=== PATIENT | male | born 1940 ===

== ENCOUNTER 2018-07-22 04:20 | Inpatient (IN) ==
[2018-07-22] MEDS ORDERED: ONDANSETRON 4 MG/2 ML VIAL IV STA (04:30)
[2018-07-22] MEDS ORDERED: MORPHINE 4 MG/1 ML VIAL IV STA (04:30)
[2018-07-22] MEDS ORDERED: KETOROLAC 30 MG/1 ML VIAL IV STA (04:30)
[2018-07-22 04:58] LABS: Basophils # 0.1 10*3/uL (0.0-0.2); Basophils % 0.8 % (0.0-0.8); Eosinophils # 0.1 10*3/uL (0.0-0.87); Eosinophils % 0.9 % (0.00-10.9); Hematocrit 49.3 VOL% (42.0-52.0); Hemoglobin 16.8 GM/DL (14.0-18.0); Immature Granulocytes % 0.4 %; Immature Granulocytes Absolute 0.07 #; Lymphocytes # 2.3 10*3/uL (1.4-4.0); Lymphocytes % 14.7 % (21.2-54.2); Mean Corpuscular HGB Conc 34.1 GM/DL (32-36); Mean Platelet Volume 11.2 FL (9.6-12.0); Monocytes % 6.5 % (1.7-12.7); Neutrophils % 76.7 % (38.7-73.9); Platelet Count 281 T/CUMM (130-400); Red Blood Count 5.19 MC/CUMM (3.8-5.5); Red Cell Distribution Width 13.4 % (9.3-17.3); White Blood Count 15.6 T/CUMM (4-12)
[2018-07-22 06:16] LABS: Albumin 4.3 G/DL (3.4-5.0); Calcium 10.6 MG/DL (8.5-10.1); Osmolality,Calculated 284.3 MOS/KG (273-304); Total Protein 8.2 G/DL (6.4-8.3)
[2018-07-22] MEDS: DEXTROSE 5% LACTATED RINGERS 1,000 ML IV SCH ×3 (06:51→23:17)
[2018-07-22] MEDS: MORPHINE 4 MG/1 ML VIAL IV PRN ×3 (07:35→20:31)
[2018-07-22] MEDS: PANTOPRAZOLE 40 MG VIAL IV SCH (08:57)
[2018-07-22] MEDS: ONDANSETRON 4 MG/2 ML VIAL IV PRN (14:41)
[2018-07-22 18:26] LABS: Apearance,Urine Slightly Hazy (Clear); Bilirubin,Urine Negative (Negative); Blood, Urine Large mg/dL (Negative); Glucose,Urine (UA) Negative (Negative); Ketones,Urine Negative (Negative); Mucus,Urine Few /LPF (Occasional); Nitrite,Urine Negative (Negative); Protein,Urine 100 MG/DL; RBC,Urine 226 /HPF (0-4); Squamous Epithelial Cell,Urine Occasional /HPF (0-10); Urine Color Amber (Yellow); Urine Specific Gravity 1.025 (1.001-1.035); Urine Urobilinogen < 2.0 EU/DL (0.2-1.0); WBC,Urine 22 /HPF (0-6)
[2018-07-22] MEDS ORDERED: TAMSULOSIN 0.4 MG CAPSULE PO SCH (21:00)
[2018-07-23] MEDS: ACETAMINOPHEN 325 MG TABLET PO PRN (02:20)
[2018-07-23 04:34] LABS: Basophils # 0.1 10*3/uL (0.0-0.2); Basophils % 0.6 % (0.0-0.8); Eosinophils # 0.2 10*3/uL (0.0-0.87); Eosinophils % 2.7 % (0.00-10.9); Hematocrit 39.1 VOL% (42.0-52.0); Hemoglobin 13.2 GM/DL (14.0-18.0); Immature Granulocytes % 0.3 %; Immature Granulocytes Absolute 0.02 #; Lymphocytes # 1.9 10*3/uL (1.4-4.0); Lymphocytes % 25.2 % (21.2-54.2); Mean Corpuscular HGB Conc 33.8 GM/DL (32-36); Mean Corpuscular Volume 96.5 FL (87-102); Mean Platelet Volume 11.2 FL (9.6-12.0); Monocytes % 10.6 % (1.7-12.7); Neutrophils % 60.6 % (38.7-73.9); Platelet Count 189 T/CUMM (130-400); Red Blood Count 4.05 MC/CUMM (3.8-5.5); Red Cell Distribution Width 13.2 % (9.3-17.3); White Blood Count 7.7 T/CUMM (4-12)
[2018-07-23 05:04] LABS: Calcium 8.4 MG/DL (8.5-10.1); Osmolality,Calculated 291.7 MOS/KG (273-304)
[2018-07-23] MEDS ORDERED: BENZOCAINE 20% SPRAY 57 GM CAN TOP ONE ×2 (07:33→09:00)
[2018-07-23] MEDS: DEXTROSE 5% LACTATED RINGERS 1,000 ML IV SCH ×4 (07:39→23:57)
[2018-07-23] MEDS: PANTOPRAZOLE 40 MG VIAL IV SCH (08:43)
[2018-07-23] MEDS ORDERED: LISINOPRIL/HCTZ 20-12.5 MG TABLET PO SCH (09:00)
[2018-07-23] MEDS ORDERED: KETOROLAC 15 MG/1 ML VIAL IV PRN (09:27)
[2018-07-23] MEDS ORDERED: hydrALAZINE 20 MG/1 ML VIAL IV PRN (09:28)
[2018-07-23] MEDS: MORPHINE 4 MG/1 ML VIAL IV PRN ×3 (09:46→22:24)
[2018-07-23] MEDS: ONDANSETRON 4 MG/2 ML VIAL IV PRN ×2 (09:48→16:16)
[2018-07-24] MEDS: DEXTROSE 5% LACTATED RINGERS 1,000 ML IV SCH ×3 (07:34→20:58)
[2018-07-24 08:22] LABS: Basophils # 0.1 10*3/uL (0.0-0.2); Basophils % 0.7 % (0.0-0.8); Eosinophils # 0.2 10*3/uL (0.0-0.87); Eosinophils % 2.5 % (0.00-10.9); Hematocrit 43.8 VOL% (42.0-52.0); Hemoglobin 14.4 GM/DL (14.0-18.0); Immature Granulocytes % 0.3 %; Immature Granulocytes Absolute 0.03 #; Lymphocytes # 2.3 10*3/uL (1.4-4.0); Lymphocytes % 26.6 % (21.2-54.2); Mean Corpuscular HGB Conc 32.9 GM/DL (32-36); Mean Corpuscular Volume 97.8 FL (87-102); Mean Platelet Volume 10.8 FL (9.6-12.0); Monocytes % 9.5 % (1.7-12.7); Neutrophils % 60.4 % (38.7-73.9); Platelet Count 224 T/CUMM (130-400); Red Blood Count 4.48 MC/CUMM (3.8-5.5); Red Cell Distribution Width 13.2 % (9.3-17.3); White Blood Count 8.6 T/CUMM (4-12)
[2018-07-24] MEDS: PANTOPRAZOLE 40 MG VIAL IV SCH (08:40)
[2018-07-24 08:51] LABS: Albumin 3.7 G/DL (3.4-5.0); Bilirubin,Total 2.9 MG/DL (0.2-1.0); Calcium 9.4 MG/DL (8.5-10.1); Osmolality,Calculated 281.3 MOS/KG (273-304); Total Protein 7.1 G/DL (6.4-8.3)
[2018-07-24] MEDS: CIPROFLOXACIN INJ 400 MG in PREMIX 1 EACH IV SCH (13:53)
[2018-07-24] MEDS: metroNIDAZOLE INJ 500 MG in PREMIX 1 EACH IV SCH ×2 (15:03→20:11)
[2018-07-24] MEDS ORDERED: POLYETHYLENE GLYCOL POWDER 255 GM BOTTLE PO ONE (18:00)
[2018-07-25] MEDS: CIPROFLOXACIN INJ 400 MG in PREMIX 1 EACH IV SCH ×2 (00:40→13:18)
[2018-07-25] MEDS: ONDANSETRON 4 MG/2 ML VIAL IV PRN (00:43)
[2018-07-25] MEDS: metroNIDAZOLE INJ 500 MG in PREMIX 1 EACH IV SCH ×4 (02:42→20:11)
[2018-07-25] MEDS ORDERED: MAGNESIUM CITRATE 300 ML BOTTLE PO ONE (06:00)
[2018-07-25] MEDS ORDERED: LIDOCAINE 2% 5 ML VIAL ONE (08:00)
[2018-07-25] MEDS ORDERED: PROPOFOL 200 MG/20 ML VIAL IV ONE (08:00)
[2018-07-25] MEDS: PANTOPRAZOLE 40 MG VIAL IV SCH (08:49)
[2018-07-25] MEDS: DEXTROSE 5% LACTATED RINGERS 1,000 ML IV SCH ×2 (14:31→15:46)
[2018-07-25] MEDS ORDERED: FLUTICASONE 50 MCG NASAL SPRAY 16 GM BOTTLE BOTH NARES PRN (16:17)
[2018-07-25] MEDS ORDERED: CETIRIZINE 10 MG TABLET PO PRN (16:17)
[2018-07-25] MEDS: guaiFENesin 200 MG/10 ML UDCUP PO PRN ×2 (16:28→20:12)
[2018-07-25] MEDS ORDERED: BENZONATATE 100 MG CAPSULE PO PRN (21:39)
[2018-07-25] MEDS ORDERED: PHENOL 1.4% THROAT SPRAY 177 ML BOTTLE PO PRN (21:40)
[2018-07-26] MEDS: CIPROFLOXACIN INJ 400 MG in PREMIX 1 EACH IV SCH (00:49)
[2018-07-26] MEDS: metroNIDAZOLE INJ 500 MG in PREMIX 1 EACH IV SCH ×2 (02:33→08:27)
[2018-07-26] MEDS: DEXTROSE 5% LACTATED RINGERS 1,000 ML IV SCH (02:35)
[2018-07-26] MEDS: ACETAMINOPHEN 325 MG TABLET PO PRN (04:58)
[2018-07-26] MEDS: PANTOPRAZOLE 40 MG VIAL IV SCH (08:29)
[2018-07-26] MEDS ORDERED: oxyCODONE/ACETAMINOPHEN 5-325 MG TABLET PO PRN (10:19)
[2018-07-26 12:14] VITALS: BP 125/64
[2018-07-26] MEDS ORDERED: ZALEPLON 5 MG CAPSULE PO SCH (21:00)
[2018-07-27] MEDS ORDERED: CLOPIDOGREL 75 MG TABLET PO SCH (09:00)
[2018-07-27] MEDS ORDERED: ALLOPURINOL 300 MG TABLET PO SCH (09:00)
[2018-07-27] MEDS ORDERED: FINASTERIDE 5 MG TABLET PO SCH (09:00)
[2018-07-27] MEDS ORDERED: ASPIRIN CHEW 81 MG TABLET PO SCH (09:00)
== END 2018-07-26 12:45 | disposition home or self-care (01) | DRG 392 ==
LOC: N.ED 04:20 → N.EDINP 04:20 → N.3W 06:15 → N.3E 06:18
PROVIDERS: ADMIT Surgery; ATTEND Surgery